=== PATIENT | female | born 1965 | race Caucasian/White ===

== ENCOUNTER 2016-02-28 18:57 | Emergency (ER) | payer BC, OTHER ==
[~2016-02-28] VITALS: Ht 154.9 cm; Wt 87.1 kg
[~2016-02-28 18:57] MED LIST: ALBU1AER9; EPP3/2 INJ; IBUP-1050 PO
[2016-02-28 19:01] VITALS: TEMP 36.4; Ht 154.9 cm; Wt 87.1 kg
[2016-02-28] MEDS ORDERED: IBUP-1451 PO (19:15)
[2016-02-28] MEDS ORDERED: LISINOPRIL 5 MG TAB PO STA (19:17)
[2016-02-28 20:42] LABS: BASO % 0.5 %; BASO ABS # 0.03 K/uL (0-0.2); COMPLETE YES; EOS % 1.4 %; HEMATOCRIT 42.5 % (37-47); LYMPH % 43.1 %; LYMPH ABS # 2.45 K/uL (1.2-3.4); MEAN CELL VOLUME 86.9 fL (80-100); MEAN CORPUSCULAR HEMOGLOBIN 29.9 pg (25-34); MEAN CORPUSCULAR HGB CONC 34.4 g/dl (32-36); MEAN PLATELET VOLUME 10.7 fL (7.4-10.4); MONO % 8.4 %; NEUT % 46.6 %; PLATELET COUNT 210 K/uL (130-400); RED BLOOD COUNT 4.89 M/uL (4.2-5.4); WHITE BLOOD COUNT 5.69 K/uL (4.8-10.8)
[2016-02-28 20:53] LABS: PROTHROMBIN TIME (PATIENT) 10.3 SECONDS (9.0-12.0)
[2016-02-28 21:00] LABS: BLOOD UREA NITROGEN 13 mg/dl (7-18); BUN/CREATININE RATIO 17.4 (10-20); CALCIUM 9.2 mg/dl (8.5-10.1); CARBON DIOXIDE 27 mmol/L (21-32); CHLORIDE 107 mmol/L (98-107); CREATININE 0.76 mg/dl (0.60-1.20); GLUCOSE 89 mg/dl (70-99); POTASSIUM 3.6 mmol/L (3.5-5.1); SODIUM 144 mmol/L (136-145)
--- NOTE | 2016-02-28 21:04 | DIAGNOSTIC IMAGING REPORT ---
CT HEAD WITHOUT CONTRAST (CT) CLINICAL HISTORY: Headache and hypertension COMPARISON STUDY: No previous studies for comparison. TECHNIQUE: Axial CT of the brain is performed from the vertex to the skull base. IV contrast was not administered for this examination. CT DOSE: 537.48 mGy.cm FINDINGS: No intra or extra-axial mass lesions are visualized. There is no CT evidence of acute cortical infarction. There is no evidence of midline shift. There is no acute hemorrhage. No calvarial fractures are visualized. There are minimal white matter hypodensities likely on a small vessel basis. There is no evidence of pathologic ventricular dilatation. There is no evidence of acute sinusitis IMPRESSION: No acute intracranial findings Electronically signed by: Mark Diaz M.D. 02/28/2016 9:02 PM Dictated Date/Time: 02/28/2016 9:00 PM
[2016-02-28] MEDS ORDERED: HydrALAZINE HCL 20 MG/ML VIAL IV. STA (21:14)
[2016-02-28 21:35] VITALS: BP 139/93; PULSE 86; O2SAT 98
--- NOTE | 2016-02-28 23:19 | EMERGENCY ROOM VISIT NOTE ---
History Report prepared by Jose: Moni Colbert Under the Supervision of: Dr. Michael Overton M.D. First contact with patient: 19:08 Chief Complaint: HYPERTENSION Stated Complaint: HIGH BP History of Present Illness The patient is a 50 year old female who presents to the Emergency Room with complaints of persistent hypertension over the past several days. She also complains of a headache, which she describes as a pressure, at the top of her head, and occasional heart fluttering. This morning, the patient's blood pressure was 170/121. This afternoon, the patient had an appointment with Dr. Chavira where she was evaluated and had an EKG. he noted the EKG was unchanged from her previous one. He referred the patient to the ER for further testing. Her blood pressure upon leaving the office was 158/106. The patient has never been on blood pressure medications. Today, she was prescribed lisinopril by Dr Chavira - 5 mg to start, and then increasing to 10 mg after 10 days. Denies visual problems, chest pain, shortness of breath, urinary symptoms, or other complaints. Source of History: patient Onset: several days ago Position: other (Global) Symptom Intensity: 170/121 Quality: other (hypertension) Timing: other (persistent) Associated Symptoms: + headache, No SOB, No chest pain, No urinary symptoms Note: Other symptoms: occasional heart fluttering Review of Systems See HPI for pertinent positives & negatives. A total of 10 systems reviewed and were otherwise negative. Past Medical & Surgical Medical Problems: (1) Fracture of sesamoid bone (2) Hodgkin disease Family History Cancer Diabetes mellitus Hypertension Social History Smoking Status: Former Smoker Alcohol Use: occasionally Marital Status: Housing Status: lives with family Occupation Status: employed Current/Historical Medications Scheduled Epinephrine (Epipen 2-Atilio), 1 DOSE INJ prn ud Scheduled PRN Albuterol Sulfate (Proair Hfa), 2 PUFFS Q4H PRN for Wheezing Ibuprofen Tab (Motrin), 800 MG PO BID PRN for Pain Allergies Coded Allergies: Erythromycin (Verified Allergy, Intermediate, RASH--TAKEN ZITHROMAX AND BIAXIN W/OUT A PROBLEM, 02/28/16) Morphine (Verified Allergy, Unknown, 02/28/16) Penicillins (Verified Allergy, Unknown, 02/28/16) Sulfa Drugs (Verified Allergy, Unknown, BACTRIM, 02/28/16) Physical Exam Vital Signs Date Time Temp Pulse Resp B/P Pulse Ox O2 Delivery O2 Flow Rate FiO2 02/28/16 21:35 86 20 139/93 98 Room Air 02/28/16 20:50 68 22 167/101 100 Room Air 02/28/16 20:17 71 02/28/16 19:01 36.4 81 20 196/126 100 Room Air Physical Exam Constitutional: Vital signs reviewed. Eyes: Pupils are equal round reactive to light. Conjunctiva are noninjected. ENT: Pharynx is clear without erythema or exudate. Mucous membranes are moist. Neck supple without meningeal signs. Respiratory: Clear to auscultation bilaterally. Breath sounds are equal bilaterally. Cardiovascular: Regular rate and rhythm. No rubs or gallops. GI: Soft, nondistended and nontender. Bowel sounds are present. Musculoskeletal: No peripheral edema. No lower extremity tenderness. Integumentary: No cyanosis. Neurological: The patient is awake and alert. Cranial nerves II-XII are intact. Motor is 5 out of 5 all extremities. Sensation is intact to light touch all extremities. Normal speech. No pronator drift. Psychiatric: Normal affect. Medical Decision & Procedures ER Provider Diagnostic Interpretation: CT results as stated below per my review and radiologist interpretation. CT HEAD WITHOUT CONTRAST (CT) CLINICAL HISTORY: Headache and hypertension COMPARISON STUDY: No previous studies for comparison. TECHNIQUE: Axial CT of the brain is performed from the vertex to the skull base. IV contrast was not administered for this examination. CT DOSE: 537.48 mGy.cm FINDINGS: No intra or extra-axial mass lesions are visualized. There is no CT evidence of acute cortical infarction. There is no evidence of midline shift. There is no acute hemorrhage. No calvarial fractures are visualized. There are minimal white matter hypodensities likely on a small vessel basis. There is no evidence of pathologic ventricular dilatation. There is no evidence of acute sinusitis IMPRESSION: No acute intracranial findings Electronically signed by: Mark Diaz M.D. 02/28/2016 9:02 PM Dictated Date/Time: 02/28/2016 9:00 PM Laboratory Results 02/28/16 20:33 Red Blood Count 4.89, Mean Corpuscular Volume 86.9, Mean Corpuscular Hemoglobin 29.9, Mean Corpuscular Hemoglobin Concent 34.4, Mean Platelet Volume 10.7, Neutrophils (%) (Auto) 46.6, Lymphocytes (%) (Auto) 43.1, Monocytes (%) (Auto) 8.4, Eosinophils (%) (Auto) 1.4, Basophils (%) (Auto) 0.5, Neutrophils # (Auto) 2.65, Lymphocytes # (Auto) 2.45, Monocytes # (Auto) 0.48, Eosinophils # (Auto) 0.08, Basophils # (Auto) 0.03 02/28/16 20:33 Test 02/28/16 20:33 White Blood Count 5.69 K/uL (4.8-10.8) Red Blood Count 4.89 M/uL (4.2-5.4) Hemoglobin 14.6 g/dL (12.0-16.0) Hematocrit 42.5 % (37-47) Mean Corpuscular Volume 86.9 fL (80-100) Mean Corpuscular Hemoglobin 29.9 pg (25-34) Mean Corpuscular Hemoglobin Concent 34.4 g/dl (32-36) Platelet Count 210 K/uL (130-400) Mean Platelet Volume 10.7 fL (7.4-10.4) Neutrophils (%) (Auto) 46.6 % Lymphocytes (%) (Auto) 43.1 % Monocytes (%) (Auto) 8.4 % Eosinophils (%) (Auto) 1.4 % Basophils (%) (Auto) 0.5 % Neutrophils # (Auto) 2.65 K/uL (1.4-6.5) Lymphocytes # (Auto) 2.45 K/uL (1.2-3.4) Monocytes # (Auto) 0.48 K/uL (0.11-0.59) Eosinophils # (Auto) 0.08 K/uL (0-0.5) Basophils # (Auto) 0.03 K/uL (0-0.2) RDW Standard Deviation 42.3 fL (36.4-46.3) RDW Coefficient of Variation 13.3 % (11.5-14.5) Immature Granulocyte % (Auto) 0.0 % Immature Granulocyte # (Auto) 0.00 K/uL (0.00-0.02) Prothrombin Time 10.3 SECONDS (9.0-12.0) Prothromb Time International Ratio 1.0 (0.9-1.1) Activated Partial Thromboplast Time 26.6 SECONDS (21.0-31.0) Partial Thromboplastin Ratio 1.0 Anion Gap 10.0 mmol/L (3-11) Est Creatinine Clear Calc Drug Dose 86.8 ml/min Estimated GFR () 104.5 Estimated GFR (Non- 90.2 BUN/Creatinine Ratio 17.4 (10-20) Calcium Level 9.2 mg/dl (8.5-10.1) Troponin I < 0.015 ng/ml (0-0.045) Laboratory results as reviewed by me. Medications Administered Medications (Trade) Dose Ordered Sig/Ariana Route Start Time Stop Time Status Last Admin Dose Admin Lisinopril (Zestril Tab) 5 mg NOW STAT PO 02/28/16 19:17 02/28/16 19:19 DC 02/28/16 19:36 5 MG ECG Indication: other (hypertension) Rate (beats per minute): 70 Rhythm: normal sinus Findings: no acute ischemic change, no ectopy ED Course 1909: The patient was evaluated in room B11A. A complete history and physical exam was performed. 1916: Ordered Lisinopril 5 mg PO. 2112: I reassessed the patient and rechecked her blood pressure. Her blood pressure was 170/97. Ordered Hydralazine HCl 5 mg IV. 2136: I reassessed the patient. Her blood pressure was 139/93, so I cancelled the Hydralazine. 2141: I discussed test results with the patient. She will be discharged home. Medical Decision This is a 50-year-old female presents with headache and elevated blood pressure. Differential diagnosis includes hypertensive emergency, hypertensive urgency, end organ damage, intracranial hemorrhage, essential hypertension. I did perform a limited focused review of portions of the patient's old chart on the electronic medical record. The patient has had no recent pertinent visits to this hospital. I did evaluate the patient as noted above. The patient is neurologically intact. She has had elevated blood pressures for the past several days. She is complaining of a headache. IV access was established. The patient was placed on a continuous vehicle monitor technician. I did treat patient with lisinopril 5 mg orally. I did order and personally review the patient's 12-lead EKG as described above. I did order and review the patient's blood work as noted in the electronic medical record. Blood work is unremarkable. I did order a CT of the head. I did review the images myself as well as the radiology report as described above. There is no evidence of intracranial hemorrhage. I did reassess the patient. I did discuss the test results with her. Her blood pressure remained elevated and so I did initially write for some hydralazine but when the nurse was about to administer blood pressure came down further and she did not require the hydralazine. The patient was therefore discharged in good condition. She will continue the lisinopril as prescribed by her doctor. She was advised follow up with her doctor. Impression Primary Impression: Hypertension Additional Impression: Headache Scribe Attestation The scribe's documentation has been prepared under my direct and personally reviewed by me in its entirety. I confirm that the note above accurately reflects all work, treatment, procedures, and medical decision making performed by me. Departure Information Dispostion Home / Self-Care Referrals Ross Chavira M.D. (PCP) Patient Instructions A Signature Page, ED Hypertension [place], Headache Pain, My [facility] Additional Instructions You have been examined and treated today on an emergency basis only. This is not a substitute for, or an effort to provide, complete comprehensive medical care. It is impossible to recognize and treat all injuries or illnesses in a single emergency department visit. It is therefore important that you follow up closely with your physician. Call as soon as possible for an appointment. Return for worsening symptoms or if you develop fever, vomiting, chest pain or any other concerning symptoms.
== END 2016-02-28 22:05 | disposition home or self-care (01) ==
LOC: C.EDB 18:59
DX: I10 Essential (primary) hypertension (principal); R51 Headache; Z87.891 Personal history of nicotine dependence

== ENCOUNTER 2017-05-22 18:40 | Emergency (ER) | payer BC, OTHER ==
[~2017-05-22] VITALS: Ht 154.9 cm; Wt 88.1 kg
[~2017-05-22 18:40] MED LIST changes: -IBUP-1050 PO; +IBUP-1451 PO
[2017-05-22 18:44] VITALS: BP 177/111; PULSE 104; TEMP 36.8; O2SAT 95; Ht 154.9 cm; Wt 88.1 kg
[2017-05-22] MEDS ORDERED: CYCL5TAB PO (18:58)
[2017-05-22] MEDS ORDERED: KETOROLAC TROMETHAMINE 30 MG/ML VIAL IM STA (18:58)
--- NOTE | 2017-05-22 18:59 | EMERGENCY ROOM VISIT NOTE ---
History Report prepared by Jose: Priti Alan Under the Supervision of: Dr. Adiel Madera M.D. First contact with patient: 18:47 Chief Complaint: FLANK PAIN Stated Complaint: LEFT LOWER BACK PAIN, STARTED YESTERDAY History of Present Illness The patient is a 51 year old female who presents to the Emergency Room with complaints of left lower back pain beginning around 1200 yesterday. She describes the pain as cramping, moderate in nature. No radiation. She denies any difficulty or pain while urinating. No hematuria or urinary incontinence. No saddle anesthesia or paresthesias. She denies lifting anything abnormal lately or chance of . Source of History: patient Onset: 1200 yesterday Position: back (lower) Symptom Intensity: severe Quality: cramping Associated Symptoms: No urinary symptoms Note: She denies any difficulty or pain while urinating. She denies lifting anything abnormal lately or chance of . Review of Systems See HPI for pertinent positives and negatives. A total of ten systems were reviewed and were otherwise negative. Past Medical & Surgical Medical Problems: (1) Fracture of sesamoid bone (2) Hodgkin disease Family History Cancer Diabetes mellitus Hypertension Social History Smoking Status: Never Smoker Alcohol Use: occasionally Marital Status: Housing Status: lives with family Occupation Status: employed Current/Historical Medications Scheduled Cyclobenzaprine Hcl (Flexeril), 5 MG PO TID Epinephrine (Epipen 2-Atilio), 1 DOSE INJ prn ud Scheduled PRN Albuterol Sulfate (Proair Hfa), 2 PUFFS Q4H PRN for Wheezing Ibuprofen Tab (Motrin), 800 MG PO BID PRN for Pain Allergies Coded Allergies: Erythromycin (Verified Allergy, Intermediate, RASH--TAKEN ZITHROMAX AND BIAXIN W/OUT A PROBLEM, 02/28/16) Morphine (Verified Allergy, Unknown, 02/28/16) Penicillins (Verified Allergy, Unknown, 02/28/16) Sulfa Drugs (Verified Allergy, Unknown, BACTRIM, 02/28/16) Physical Exam Vital Signs Date Time Temp Pulse Resp B/P (MAP) Pulse Ox O2 Delivery O2 Flow Rate FiO2 05/22/17 18:44 36.8 104 18 177/111 95 Room Air Physical Exam Physical Exam GENERAL: She is oriented to person, place, and time. She appears well- developed and well-nourished. She does not appear distressed. ____ HENT: Exam performed. Head: Normocephalic and atraumatic. Right Ear: External ear normal. No mastoid tenderness. Left Ear: External ear normal. No mastoid tenderness. Mouth/Throat: The oropharynx is clear and moist. No trismus in the jaw. No dental abscesses or uvula swelling. No oropharyngeal exudate or tonsillar abscesses. ____ EYES: Conjunctivae and EOM are normal. Pupils are equal, round, and reactive to light. Right eye exhibits no discharge. Left eye exhibits no discharge. No scleral icterus. ____ NECK: Normal range of motion. Neck supple. No JVD present. No spinous process tenderness present. No carotid bruit present. No rigidity. No tracheal deviation and normal range of motion present. No Brudzinski's sign and no Kernig 's sign noted. ____ CV: Normal rate, regular rhythm, normal heart sounds and intact distal pulses. There is no peripheral edema. Palpable radial pulses bue. ____ PULM/CHEST: Effort normal and breath sounds normal. No respiratory distress. No stridor. She has no wheezes. She has no rales. Chest Wall: She exhibits no tenderness. ____ ABD: The abdomen is soft. Bowel sounds are normal. She has no distension. No mass is present. There is no tenderness. There is no rebound, no guarding, no Reis's sign and no tenderness at McBurney'spoint. Rovsig negative. No CVA tenderness MUSC/SKEL: Normal range of motion. Back has no CT or L spine tenderness. Pain on palpation reproducing the chief complaint and causing spams over the left paraspinal muscles. LYMPH: No cervical adenopathy. ____ NEURO: She is alert and oriented to person, place, and time. She has normal strength. No cranial nerve deficit or sensory deficit. Coordination and gait normal. GCS eye subscore is 4. GCS verbal subscore is 5. GCS motor subscore is 6. Cerebellar tests wnl. No saddle paresthesia SKIN: Skin is warm and dry. She is not diaphoretic. ____ PSYCH: She has a normal mood and affect. her behavior is normal. Judgment and thought content normal. ____ Medical Decision & Procedures Medications Administered Medications (Trade) Dose Ordered Sig/Ariana Route Start Time Stop Time Status Last Admin Dose Admin Ketorolac Tromethamine (Toradol Inj) 15 mg NOW STAT IM 05/22/17 18:58 05/22/17 19:00 DC 05/22/17 19:05 15 MG Cyclobenzaprine HCl (Flexeril Tab) 5 mg NOW PO 05/22/17 19:00 05/22/17 19:24 DC 05/22/17 19:05 5 MG ED Course 1849: The patient was evaluated in room B9. A complete history and physical exam was performed. Vital signs stable. Patient has physical exam findings and HPI consistent with paraspinal back spasm/strain. No CVA tenderness, no reported hematuria or dysuria, no concern for UTI/kidney stone. No emergent imaging warranted at this time as there are no pain on palpation of the CT or L- spine and no reported trauma, also no concerning red flags for cord compression. Analgesia given in the emergency department as well as Flexeril. Patient will be discharged with prescription Flexeril.DISCHARGE - Plan of care discussed with patient and questions answered. The patient was given both verbal and printed discharge instructions. The patient verbalized understanding and ability to comply. The patient is to seek outpatient follow up as noted in the discharge instructions. The patient verbalized understanding and ability to comply. The patient is discharged in stable condition. The patient was instructed to return for worsening symptoms. Medical Decision The patient was evaluated in room B9. A complete history and physical exam was performed. Vital signs stable. Patient has physical exam findings and HPI consistent with paraspinal back spasm/strain. No CVA tenderness, no reported hematuria or dysuria, no concern for UTI/kidney stone. No emergent imaging warranted at this time as there are no pain on palpation of the CT or L-spine and no reported trauma, also no concerning red flags for cord compression. Analgesia given in the emergency department as well as Flexeril. Patient will be discharged with prescription Flexeril.DISCHARGE - Plan of care discussed with patient and questions answered. The patient was given both verbal and printed discharge instructions. The patient verbalized understanding and ability to comply. The patient is to seek outpatient follow up as noted in the discharge instructions. The patient verbalized understanding and ability to comply. The patient is discharged in stable condition. The patient was instructed to return for worsening symptoms. Medication Reconcilliation Current Medication List: was personally reviewed by me Blood Pressure Screening Patient's blood pressure: Elevated blood pressure Blood pressure disposition: Elevated BP felt to be situational Impression Primary Impression: Back pain Additional Impression: Back spasm Scribe Attestation The scribe's documentation has been prepared under my direction and personally reviewed by me in its entirety. I confirm that the note above accurately reflects all work, treatment, procedures, and medical decision making performed by me. The chart was completed utilizing [employer] Speech voice recognition software. Grammatical errors, random word insertions, pronoun errors, and incomplete sentences are an occasional consequence of this system due to software limitations, ambient noise, and hardware issues. Any formal questions or concerns about the content, text, or information contained within the body of this dictation should be directly addressed to the physician for clarification. Departure Information Dispostion Home / Self-Care Prescriptions Cyclobenzaprine Hcl (FLEXERIL) 5 Mg Tab 5 MG PO TID for Pain, #30 TAB PRN Prov: Adiel Madera M.D. 05/22/17 Referrals Ross Chavira M.D. (PCP) Forms HOME CARE DOCUMENTATION FORM, IMPORTANT VISIT INFORMATION Patient Instructions My [facility] [employer] Additional Instructions Take medications as prescribed. Avoid lifting heavy objects. Return to the emergency department immediately if he developed fever greater than 100.4, blood in urine, urinary incontinence, difficulty urinating, numbness, abdominal pain, or your symptoms do not get better Problem Qualifiers
[2017-05-22] MEDS ORDERED: CYCLOBENZAPRINE HCL 5 MG TAB PO SCH (19:00)
== END 2017-05-22 19:16 | disposition home or self-care (01) ==
LOC: C.EDB 18:42
DX: M54.5 Low back pain (principal); M62.830 Muscle spasm of back; Z85.71 Personal history of Hodgkin lymphoma; Z80.9 Family history of malignant neoplasm, unspecified; Z83.3 Family history of diabetes mellitus; Z82.49 Family history of ischemic heart disease and other diseases of the circulatory system; Z88.1 Allergy status to other antibiotic agents; Z88.5 Allergy status to narcotic agent; Z88.0 Allergy status to penicillin; Z88.2 Allergy status to sulfonamides